=== PATIENT | male | born 1960 | race Caucasian/White ===

== ENCOUNTER → 2021-04-23 | Outpatient (CLI) | payer OTHER ==
[2021-04-23 15:15] LABS: BASO % 0 % (0-3); EOS % 0 % (0-3); HEMATOCRIT 36.5 % (39.0-53.0); HEMOGLOBIN 11.8 g/dL (13.0-17.5); LYMPH # 1.3 x10^3/uL (1.0-4.8); LYMPH % 20 % (24-48); MEAN CORPUSCULAR HEMOGLOBIN 27 pg (25-35); MEAN CORPUSCULAR HGB CONC 32 g/dL (31-37); MEAN CORPUSCULAR VOLUME 83 fL (79-100); MONO # 0.5 x10^3/uL (0.0-1.1); MONO % 7 % (0-9); NEUT # 4.9 x10^3/uL (1.8-7.7); NEUT % 73 % (31-73); PLATELET COUNT 268 x10^3/uL (140-400); RED BLOOD COUNT 4.39 x10^6/uL (4.30-5.70); RED CELL DISTRIBUTION WIDTH 19.5 % (11.5-14.5); WHITE BLOOD COUNT 6.6 x10^3/uL (4.0-11.0)
[2021-04-24 15:11] LABS: KAPPA FREE 14.9 mg/L (3.3-19.4); LAMBDA FREE 18.7 mg/L (5.7-26.3)
== END ==
LOC: ONCLAB 14:34
PROVIDERS: ATTEND Internal Medicine Hematology & Oncology
DX: D64.9 Anemia, unspecified (principal)
CPT/HCPCS: 82525; 82607; 82668; 82728; 82746; 82784; 83010; 83520; 83540; 83550; 84165; 85025; 85045; 86334

== ENCOUNTER → 2021-07-05 | Outpatient (CLI) | payer OTHER ==
[2021-07-05 08:43] LABS: BASO % 0 % (0-3); EOS % 0 % (0-3); HEMATOCRIT 36.5 % (39.0-53.0); HEMOGLOBIN 11.9 g/dL (13.0-17.5); LYMPH # 2.1 x10^3/uL (1.0-4.8); LYMPH % 17 % (24-48); MEAN CORPUSCULAR HEMOGLOBIN 29 pg (25-35); MEAN CORPUSCULAR HGB CONC 33 g/dL (31-37); MEAN CORPUSCULAR VOLUME 90 fL (79-100); MONO # 0.6 x10^3/uL (0.0-1.1); MONO % 5 % (0-9); NEUT # 9.9 x10^3/uL (1.8-7.7); NEUT % 79 % (31-73); PLATELET COUNT 364 x10^3/uL (140-400); RED BLOOD COUNT 4.07 x10^6/uL (4.30-5.70); RED CELL DISTRIBUTION WIDTH 17.4 % (11.5-14.5); WHITE BLOOD COUNT 12.6 x10^3/uL (4.0-11.0)
== END ==
LOC: ONCLAB 08:00
PROVIDERS: ATTEND Internal Medicine Hematology & Oncology
DX: D64.9 Anemia, unspecified (principal)
CPT/HCPCS: 36415; 85025